=== PATIENT | female | born 2000 | race Hispanic/Latino ===

== ENCOUNTER 2023-09-04 21:28 | Emergency (ER) | payer SELFPAY ==
[~2023-09-04] VITALS: Ht 172.7 cm; Wt 49.0 kg
[2023-09-04 23:54] VITALS: O2SAT 99
== END 2023-09-04 23:58 | disposition home or self-care (01) ==
LOC: ER 21:33
DX: S16.1XXA Strain of muscle, fascia and tendon at neck level, initial encounter (principal); M25.512 Pain in left shoulder; V47.5XXA Car driver injured in collision with fixed or stationary object in traffic accident, initial encounter; Y92.481 Parking lot as the place of occurrence of the external cause
CPT/HCPCS: 70450; 72125; 99283

== ENCOUNTER 2025-04-10 00:22 | Emergency (ER) | payer SELFPAY ==
[~2025-04-10] VITALS: Ht 165.1 cm; Wt 50.8 kg
[2025-04-10 00:34] VITALS: PULSE 73; RESP 17; TEMP 98.7
[2025-04-10 00:56] VITALS: BP 122/84; PULSE 69; RESP 16; O2SAT 99
== END 2025-04-10 00:53 | disposition home or self-care (01) ==
LOC: ER 00:31
DX: S00.83XA Contusion of other part of head, initial encounter (principal); W21.07XA Struck by softball, initial encounter; Y92.89 Other specified places as the place of occurrence of the external cause
CPT/HCPCS: 99282